=== PATIENT | female | born 1990 | race Caucasian/White ===

== ENCOUNTER 2018-04-01 12:10 | Inpatient (IN) | payer BC ==
[2018-04-01 12:52] VITALS: BMI 30.7
[2018-04-01 13:03] LABS: BASO % 0.4 % (0-2.0); EOS % 0.8 % (0-4.5); HEMATOCRIT 32.7 % (32.4-45.2); HEMOGLOBIN 11.1 GM/dL (10.7-15.3); LYMPH % 19.2 % (8-40); MCH 29.7 pg (25.7-33.7); MEAN CELL VOLUME 87.2 fl (80-96); MEAN PLT VOLUME 9.4 fl (7.5-11.1); MONO % 6.3 % (3.8-10.2); NEUT % 73.3 % (42.8-82.8); PLATELET COUNT 194 K/MM3 (134-434); RBC 3.75 M/mm3 (3.60-5.2); RDW 13.3 % (11.6-15.6); WHITE BLOOD COUNT 7.5 K/mm3 (4.0-10.0)
[2018-04-01 13:19] LABS: ANION GAP 8 MMOL/L (8-16); BLOOD UREA NITROGEN 7 mg/dL (7-18); CALCIUM 8.8 mg/dL (8.5-10.1); CHLORIDE 107 mmol/L (98-107); CO2 22 mmol/L (21-32); CREATININE 0.3 mg/dL (0.55-1.02); GLUCOSE,RANDOM 100 mg/dL (74-106); INR 0.97 (0.83-1.09); POTASSIUM 3.8 mmol/L (3.5-5.1); SODIUM 137 mmol/L (136-145)
[2018-04-01 13:21] LABS: ACTIVATED PTT 23.1 SECONDS (25.2-36.5)
[2018-04-01 13:22] LABS: RPR NONREACTIVE (NONREACTIVE)
[2018-04-01] MEDS ORDERED: TUBERCULIN PPD 5 TU/0.1ML SYRINGE (IN PATIENT USE ONLY) ID ONE (13:30)
[2018-04-01] MEDS ORDERED: DEXTROSE 5%-LACTATED RINGERS 1,000 ML IV SCH (13:30)
[2018-04-01] MEDS ORDERED: OXYTOCIN 30 UNITS in 0.9% NS 30 UNIT/500 ML INFUS.BAG IVPB ONE (13:53)
[2018-04-01] MEDS ORDERED: OXYTOCIN 30 UNITS in 0.9% NS 30 UNIT/500 ML INFUS.BAG IVPB SCH ×2 (14:15→16:00)
[2018-04-01] MEDS ORDERED: OXYTOCIN 15 UNITS in 0.9% NS 15 UNIT/250 ML INFUS.BAG IVPB SCH (16:00)
[2018-04-01] MEDS: DEXTROSE 5%-LACTATED RINGERS 1,000 ML IV SCH (20:00)
[2018-04-01] MEDS ORDERED: BUTORPHANOL TARTRATE 1 MG/ML VIAL ONE (20:01)
[2018-04-01] MEDS ORDERED: PROMETHAZINE HCL 25 MG/1 ML VIAL ONE (20:01)
[2018-04-01] MEDS ORDERED: PROMETHAZINE HCL 25 MG/1 ML VIAL IVPB ONE (20:10)
[2018-04-01] MEDS ORDERED: BUTORPHANOL TARTRATE 1 MG/ML VIAL IVPB ONE (20:10)
--- NOTE | 2018-04-01 20:21 | HP ---
Past Medical History - Primary Care Physician PCP:: Stu Benson - Admission Chief Complaint: 27yo P2 with at EGA 38 3/7wks admitted with c/o PROM since 11:30pm for labor indx. History of Present Illness: Pt was seen in office earlier today and found to have Nitrozine positive vaginal fluid and cervix 3cm/70%/-3. She was referred to L&D. Vag GBS (-). 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: Alzheimer's, CVA, Dementia, Migraine, Multiple Sclerosis, Peripheral Neuropathy, Parkinson's, Seizure, Syncope, TIA, Vertigo, Other Cardiovascular: No: AFIB, Aneurysm, Aortic Insufficiency, Aortic Stenosis, CAD, CHF, Deep Vein Thrombosis, HTN, Hyperlipdemia, VT, Mitral Insufficiency, Mitral Stenosis, Murmur, Pulmonary Hypertension, Other Pulmonary: No: Asthma, Bronchitis, Cancer, COPD, O2 Dependent, Pneumonia, Previously Intubated, Pulmonary Embolus, Pulmonary Fibrosis, Sleep Apnea, Other Gastrointestinal: No: Ascites, Cancer, Constipation, Crohn's Disease, Diverticulitis, Diverticulosis, Esophageal Varices, Gastritis, GERD, GI Bleed, Hemorrhoids, Hiatal Hernia, Inflamatory Bowel Disease, Irritable Bowel Disease, Pancreatitis, Peptic Ulcer Disease, Ulcerative Colitis, Other Hepatobiliary: No: Cirrhosis, Cholelithiasis, Cholecystitis, Choledocholithiasis , Hepatitis A, Hepatitis B, Hepatitis C, Other Renal/: No: Renal Failure, Renal Inusuff, BPH, Cancer, Hematuria, Hemodialysis , Neurogenic Bladder, Renal Calculi, UTI, Other Reproductive: No: Ectopic , Endometriosis, Fibroids, PID, Polycystic Ovary Syndrome, Postmenopausal, Other ...: 3 ...Para: 2 ...Term: 2 ...: 0 ...Spon : 0 ...Induced : 0 ...Multiple Gestation: 0 ...LMP: 07/12/17 ... Weeks Gestation by Dates: 38.4 ...EDC by Dates: 04/18/18 ...EDC by Sono: 04/12/18 Heme/Onc: Yes: Anemia Infectious Disease: No: AIDS, C-Diff, Herpes Zoster, HIV, MRSA, STD's, Tuberculosis, VREF, Other Psych: No: Addictions, Anxiety, Bipolar, Depression, Panic, Psychosis, Schizophrenia, Other Musculoskeletal: No: Bursitis, Chronic low back pain, Hemiparesis, Hemiplegia, Osteoarthritis, Paraplegia, Other Rheumatology: No: Fibromyalgia, Gout, Lupus, Rheumatoid Arthritis, Sarcoidosis, Vasculitis, Other ENT: No: Allergic Rhinitis, Sinusitis, Other Endocrine: No: Young's Disease, [place]'s Disease, Diabetes Insipidus, Diabetes Mellitus, Hyperparathyroidism, Hyperthyroidism, Hypothyroidism, Osteopenia, SIADH, Other Dermatology: No: Basal Cell, Cellulitis, Eczema, Melanoma, Psoriasis, Squamous Cell, Other - Past Surgical History Past Surgical History: Yes: None Hx Myomectomy: No Hx Transabdominal Cerclage: No - Smoking History Smoking history: Never smoked Have you smoked in the past 12 months: No Aproximately how many cigarettes per day: 0 - Alcohol/Substance Use Hx Alcohol Use: No History of Substance Use: reports: None - Social History Usual Living Arrangement: Yes: With Spouse, With Child ADL: Independent History of Recent Travel: No Home Medications - Allergies Allergies/Adverse Reactions: Allergies Allergy/AdvReac Type Severity Reaction Status Date / Time cefaclor [From Ceclor] Allergy Mild Rectal Verified 04/01/18 13:16 bleeding - Home Medications Home Medications: Ambulatory Orders Vit 108/Iron/Folic AC [ One Tablet] 1 tab PO DAILY 11/28/14 Family Disease History - Family Disease History Family Disease History: Diabetes: Father Review of Systems - Review of Systems Constitutional: reports: No Symptoms Eyes: reports: No Symptoms HENT: reports: No Symptoms Neck: reports: No Symptoms Cardiovascular: reports: No Symptoms Respiratory: reports: No Symptoms Gastrointestinal: reports: No Symptoms Genitourinary: reports: No Symptoms Breasts: reports: No Symptoms Reported Musculoskeletal: reports: No Symptoms Integumentary: reports: No Symptoms Neurological: reports: No Symptoms Endocrine: reports: No Symptoms Hematology/Lymphatic: reports: No Symptoms Psychiatric: reports: No Symptoms Physical Exam - Maternity Vital Signs: Vital Signs Temperature 99.1 F 04/01/18 17:00 Pulse Rate 90 04/01/18 18:00 Respiratory Rate 20 04/01/18 18:00 Blood Pressure 118/72 04/01/18 18:00 O2 Sat by Pulse Oximetry (%) Constitutional: Yes: Well Nourished, No Distress, Calm Eyes: Yes: WNL, Conjunctiva Clear HENT: Yes: WNL, Atraumatic, Normocephalic Neck: Yes: WNL, Supple, Trachea Midline Cardiovascular: Yes: WNL, Regular Rate and Rhythm Lungs: Clear to auscultation, Normal air movement Breast(s): Yes: WNL - Abdominal Exam/OB Fundal Height: 39 Number of Fetuses: Single Presentation: Vertex Contractions: Yes Regularity: Regular Intensity: Moderate Monitor Mode: External Heart Rate (range): 120 Heart Rate Location: Midline Category: I Accelerations: Uniform Decelerations: None - Vaginal Exam/OB Vaginal Bleediing: No Speculum Exam: No Dilatation (cm): 6 Effacement (%): 90 Amniotic Membrane Status: Ruptured (forebag AROM) Nitrazine Test: Positive Amniotic Fluid: Yes: Clear Presentation: Vertex/Position Station: -3 - Labs Lab Results: CBC, BMP 04/01/18 12:40 04/01/18 12:40
--- NOTE | 2018-04-01 20:36 | PN ---
Ante-Partal Exam - Subjective Subjective: Variable decels. FSE attached Vital Signs: Vital Signs Temperature 98.2 F 04/01/18 20:00 Pulse Rate 92 H 04/01/18 20:00 Respiratory Rate 04/01/18 20:00 Blood Pressure 126/67 04/01/18 20:00 O2 Sat by Pulse Oximetry (%) Bleeding: No Headache: No Visual changes: No Right upper quadrant pain: No Pain (scale 1-10): 8 - Contractions Contractions: Yes Regularity: Regular Intensity: Mod/Strong Monitor Mode: External - Exam during Labor Heart Rate: 110 Heart Rate Location: Midline Category: II Monitor Accelerations: Absent Monitor Decelerations: Variable Exam: Vaginal Dilatation (cm): 9 Effacement (%): 100 Amniotic Membrane Status: Leaking Amniotic Fluid: Clear Station: 0 - Intrapartum Hemorrhage Risk Medium Risk Factors: None High Risk Factors: None Risk Score: 0 Risk Level: Low Risk - Assessment/Plan Assessment/Plan: Pt progresse in active labor. Fetus with variable decles. pt is in pain but declined epidural. She was given Stadol and Phenergan earlier. FSE was attached. Progressing quickly. Plan .
[2018-04-01] MEDS ORDERED: LIDOCAINE HCL 1% PRESERVATIVE FREE - 30ML VIAL ONE (20:37)
[2018-04-01] MEDS ORDERED: BISACODYL 10 MG SUPP.RECT RC PRN (22:20)
[2018-04-01] MEDS ORDERED: BENZOCAINE 20% 57 GM BOTTLE TP PRN (22:20)
[2018-04-01] MEDS ORDERED: WITCH HAZEL 50% (TUCKS) 40 PAD/JAR PAD TP PRN (22:20)
[2018-04-01] MEDS ORDERED: BENZOCAINE 28 GM HEMORRHOIDAL OINTMENT TP PRN (22:20)
[2018-04-01] MEDS ORDERED: METHYLERGONOVINE MALEATE 0.2 MG/1 ML AMP IM PRN (22:20)
[2018-04-01 22:25] LABS: ARTERIAL BLOOD GAS BASE EXCESS -5.1 meq/l (-2-2)
[2018-04-01 22:26] LABS: VENOUS PC02 50.2 mmHg (38-52); VENOUS PH 7.28 (7.32-7.42); VENOUS PO2 34.1 mmHg (28-48)
[2018-04-01 22:27] LABS: ARTERIAL BLD GAS O2 SATURATION 31.8 % (90-98.9); ARTERIAL BLOOD GAS pH 7.18 (7.35-7.45)
[2018-04-01] MEDS ORDERED: OXYTOCIN 20 UNITS in 0.9% NS 20 UNIT/1,000 ML INFUS.BAG IV SCH (22:30)
[2018-04-02 06:56] LABS: BASO % 0.4 % (0-2.0); EOS % 0.6 % (0-4.5); HEMOGLOBIN 10.5 GM/dL (10.7-15.3); LYMPH % 12.5 % (8-40); MCH 29.2 pg (25.7-33.7); MCHC 33.8 g/dl (32.0-36.0); MEAN CELL VOLUME 86.5 fl (80-96); MEAN PLT VOLUME 9.9 fl (7.5-11.1); MONO % 7.7 % (3.8-10.2); NEUT % 78.8 % (42.8-82.8); PLATELET COUNT 175 K/MM3 (134-434); RBC 3.58 M/mm3 (3.60-5.2); RDW 13.3 % (11.6-15.6); WHITE BLOOD COUNT 12.3 K/mm3 (4.0-10.0)
--- NOTE | 2018-04-02 08:23 | PN ---
Progress Note (short form) - Note Progress Note: ppd 1 doing well, has mild cramps , no excess vaginal bleeding CBC, BMP 04/02/18 06:00 04/01/18 12:40 Last Vital Signs Temp Pulse Resp BP Pulse Ox 98.3 F 67 20 94/48 04/02/18 06:00 04/02/18 06:00 04/02/18 06:00 04/02/18 06:00 abdomen soft, uterus firm, non tender lochai mild no calf tenderness impression ppd 1 , afebrile, no excess vaginal bleeding plan ambulate, for d/c home in am
[2018-04-02] MEDS: IBUPROFEN 600 MG TABLET (FP) PO PRN ×2 (08:48→20:10)
[2018-04-02] MEDS: ACETAMINOPHEN 325 MG TABLET (FP) PO PRN ×2 (08:50→20:11)
[2018-04-02] MEDS: PRENATAL VITAMINS W/ FOLIC ACID TABLET (FP) PO SCH (09:57)
[2018-04-02] MEDS: DEXTROSE 5%-LACTATED RINGERS 1,000 ML IV SCH (20:16)
[2018-04-02] MEDS ORDERED: SENNOSIDES/DOCUSATE COMBO (SENNA PLUS) TABLET (UD) PO PRN (22:00)
[2018-04-03] MEDS: ACETAMINOPHEN 325 MG TABLET (FP) PO PRN ×2 (00:38→08:31)
[2018-04-03] MEDS: IBUPROFEN 600 MG TABLET (FP) PO PRN ×2 (00:38→08:31)
--- NOTE | 2018-04-03 07:50 | PN ---
Post Progress Note - Subjective Subjective: no complains Type of Delivery: Vital Signs: Vital Signs Temperature 98.0 F 04/02/18 22:00 Pulse Rate 74 04/02/18 22:00 Respiratory Rate 18 04/02/18 22:00 Blood Pressure 113/68 04/02/18 22:00 O2 Sat by Pulse Oximetry (%) Breast Exam: Yes: Soft Uterus: Yes: Fundus Firm Abdomen/GI: Yes: Abdomen soft Lochia: Yes: Rubra Lochia, amount: Small Extremities: Yes: Calves non-tender Perineum: Yes: Intact Activity: Ambulating - Labs Labs: CBC WBC 12.3 K/mm3 (4.0-10.0) H 04/02/18 06:00 RBC 3.58 M/mm3 (3.60-5.2) L 04/02/18 06:00 Hgb 10.5 GM/dL (10.7-15.3) L 04/02/18 06:00 Hct 31.0 % (32.4-45.2) L 04/02/18 06:00 MCV 86.5 fl (80-96) 04/02/18 06:00 MCH 29.2 pg (25.7-33.7) 04/02/18 06:00 MCHC 33.8 g/dl (32.0-36.0) 04/02/18 06:00 RDW 13.3 % (11.6-15.6) 04/02/18 06:00 Plt Count 175 K/MM3 (134-434) 04/02/18 06:00 MPV 9.9 fl (7.5-11.1) 04/02/18 06:00 Absolute Neuts (auto) 9.7 K/mm3 (1.5-8.0) H 04/02/18 06:00 Neutrophils % 78.8 % (42.8-82.8) 04/02/18 06:00 Lymphocytes % 12.5 % (8-40) D 04/02/18 06:00 Monocytes % 7.7 % (3.8-10.2) 04/02/18 06:00 Eosinophils % 0.6 % (0-4.5) 04/02/18 06:00 Basophils % 0.4 % (0-2.0) 04/02/18 06:00 Nucleated RBC % 0 % (0-0) 04/02/18 06:00 Assessment/Plan 28yo P3 s/p doing well, VSS, Afebrile d/c home NPV x6wks RTO 6wks
--- NOTE | 2018-04-03 07:53 | DS ---
Physical Exam-WOODWORK TEACHER Vital Signs: Vital Signs Temperature 98.0 F 04/02/18 22:00 Pulse Rate 74 04/02/18 22:00 Respiratory Rate 18 04/02/18 22:00 Blood Pressure 113/68 04/02/18 22:00 O2 Sat by Pulse Oximetry (%) Constitutional: Yes: Well Nourished, No Distress, Calm Eyes: Yes: WNL, Conjunctiva Clear, EOM Intact HENT: Yes: WNL, Atraumatic, Normocephalic Neck: Yes: WNL, Supple, Trachea Midline Cardiovascular: Yes: WNL, Regular Rate and Rhythm Respiratory: Yes: WNL, Regular, CTA Bilaterally Gastrointestinal: Yes: WNL, Normal Bowel Sounds, Soft ...Rectal Exam: Yes: WNL Renal/: Yes: WNL Pelvis: Yes: WNL External Genitalia: Yes: Normal Vaginal Exam: Yes: Normal Cervix: Yes: Normal Uterus: Yes: Normal ....Post : Yes: Uterus firm, Uterus non-tender Breast(s): Yes: WNL Musculoskeletal: Yes: WNL Extremities: Yes: WNL Edema: No Integumentary: Yes: WNL Neurological: Yes: WNL, Alert, Oriented ...Motor Strength: WNL Psychiatric: Yes: WNL, Alert, Oriented Labs: CBC, BMP 04/02/18 06:00 04/01/18 12:40 Delivery - Delivery Vaginal Delivery: No Problems Type of Anesthesia: None Episiotomy/Laceration: None EBL (cc): 300 Delivery, Single - Stages of Labor Date 1st Stage Initiatied: 04/01/18 Time 1st Stage Initiated: 03:00 Date 2nd Stage Initiated: 04/01/18 Time 2nd Stage Initiated: 21:45 Date of Delivery: 04/01/18 Time of Delivery: 22:03 Time Placenta Delivered: 22:08 Placenta: Yes: Spontaneous - Condition of Infant [employer]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 call for appointment. Referrals: Stu Benson MD [Staff Physician] - Disposition: HOME - Home Medications Comprehensive Discharge Medication List: Ambulatory Orders Vit 108/Iron/Folic AC [ One Tablet] 1 tab PO DAILY 11/28/14
[2018-04-03 09:12] VITALS: BP 112/67; PULSE 77; TEMP 98.1
[2018-04-03] MEDS: PRENATAL VITAMINS W/ FOLIC ACID TABLET (FP) PO SCH (09:38)
== END 2018-04-03 12:40 | disposition home or self-care (01) | DRG 775 ==
LOC: JLDR 12:10 → J3W 23:25
PROVIDERS: ADMIT Obstetrics & Gynecology; ATTEND Obstetrics & Gynecology
PROC: 10E0XZZ Delivery of Products of Conception, External Approach (ICD-10-PCS; principal; 2018-04-01)
DX: O42.02 Full-term premature rupture of membranes, onset of labor within 24 hours of rupture (principal); O76 Abnormality in fetal heart rate and rhythm complicating labor and delivery; Z3A.38 38 weeks gestation of pregnancy; Z37.0 Single live birth
CPT/HCPCS: 36415; 36600; 59409; 80048; 82803; 85025; 85610; 85730; 86593; 86850; 86900; 86901; 87389